=== PATIENT | female | born 1990 | race American Indian/Alaskan Native ===

== ENCOUNTER 2020-04-15 17:03 | Emergency (ER) | payer MEDICAID, OTHER ==
[2020-04-15] MEDS ORDERED: Sodium Chloride 0.9% 1,000 ML IV STA (17:29)
[2020-04-15] MEDS ORDERED: Ondansetron 4 MG/2 ML SDV IVPUSH ONE (17:29)
[2020-04-15] MEDS ORDERED: Sodium Chloride 0.9% 10 ML Syringe FLUSH PRN (17:29)
[2020-04-15] MEDS ORDERED: HYDROmorphone 1 MG/ML Syringe IVPUSH ONE (17:31)
[2020-04-15 17:32] VITALS: BP 128/91; PULSE 95
--- NOTE | 2020-04-15 18:45 | EDM.PDOC ---
<Lloyd Lopez - Last Filed: 04/15/20 20:51> ED HPI GENERAL MEDICAL PROBLEM - General Chief Complaint: Abdominal Pain Stated Complaint: PAIN RIGHT SIDE, FEVER Time Seen by Provider: 04/15/20 17:16 - Related Data Allergies Allergy/AdvReac Type Severity Reaction Status Date / Time No Known Allergies Allergy Verified 01/12/15 19:29 Home Meds: Home Meds Levofloxacin 1 tab PO QPM #6 tablet 04/15/20 [Rx] Past Medical History AIRPORT REPRESENTATIVE History: Reports: Spontaneous (x 1) : 2 Para: 1 Psychiatric History: Reports: Anxiety (untreated), Depression (untreated) Endocrine/Metabolic History: Reports: Diabetes, Gestational, Obesity/BMI 30+ Social & Family History - Tobacco Use Years of Tobacco use: 18 Packs/Tins Daily: 0.2 Packs/Tins Daily Comment: Down from 1 ppd - Alcohol Use Alcohol Use History: Yes Alcohol Use Frequency: Socially - Recreational Drug Use Recreational Drug Use: Yes Drug Use in Last 12 Months: Yes Recreational Drug Type: Reports: Methamphetamine (last injected late Mar 2020), Other (see below) (Last snorted, smoked opioids around 2009) - Living Situation & Occupation Living situation: Reports: Single, with Significant Other (Boyfriend), with Family (Son) 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 Becker. I have interviewed and examined the patient. The patient acknowledges that she has had this same right-sided abdominal pain that is also felt in her right flank for about a year, but it has been mild, therefore she has not sought medical attention for it. It became worse on or about , 04/11/2020, although the patient also acknowledges that she is not really sure on the timing, due to recently relapsing with IV methamphetamine. She estimates that she last injected methamphetamine about 1 week ago. She states that her LMP was yesterday, but that it was already finished by this morning. On examination, she has normal bowel sounds and a soft abdomen, but complains of some tenderness to the right side. She also complains of right CVA tenderness. The remainder of her examination is unremarkable. The patient's CBC is remarkable for a WBC count mildly elevated at 11.21, and an H/H slight depressed at 10.8/34.0, with the remainder of her CBC being unremarkable. Her CMP is remarkable for a potassium modestly depressed at 3.0, with the remai nder of her CMP being unremarkable. Her lipase is within normal limits at 72. Her qualitative serum hCG is negative. Her urinalysis is remarkable for 2+ occult blood with 5-10 RBCs, trace leukocyte esterase with 30-40 WBCs, nitrate negative with many bacteria, and 0-5 squamous epithelial cells. The results of the patient's CT of the abdomen and pelvis without contrast are still pending. Based on the above, I have ordered a urine culture, and will start the patient on oral nitrofurantoin. I have also ordered 40 mEq of oral KCl. 04/15/20 19:59 CT of the abdomen and pelvis without contrast is read by Dr. Nguyen as: 1. Slight haziness around the right kidney and ureter usually seen with a ureteral obstruction. No ureteral stone is seen on current exam and findings raise possibility of recent renal stone passage. Please correlate if patient's symptoms have improved. Findings otherwise could represent pyelonephritis. 2. No other acute finding is seen on CT study of the abdomen and pelvis performed without contrast. Based on the above, I will have to treat the patient for pyelonephritis, instead of a UTI. I will therefore start her on oral Levaquin, and prescribe a 7-day course. She may then safely be discharged home, however, I would like her to follow-up with her PCP in 3 days to check on her urine culture results. Departure - Departure Time of Disposition: 20:06 Disposition: Home, Self-Care 01 Condition: Good Clinical Impression: Pyelonephritis - Discharge Information *PRESCRIPTION DRUG MONITORING PROGRAM REVIEWED*: Not Applicable *COPY OF PRESCRIPTION DRUG MONITORING REPORT IN PATIENT NO: Not Applicable Prescriptions: Levofloxacin 1 tab PO QPM #6 tablet Instructions: Pyelonephritis, Adult Referrals: Adelina Mccauley NP [Nurse Practitioner] - Forms: ED Department Discharge Additional Instructions: You were seen in the emergency room for chronic right-sided abdominal and flank pain, worse over the past several days, with associated nausea but decreased appetite, increased urinary frequency, and possible fever. Work-up in the ER included blood work, a urinalysis, and a CT scan of your abdomen and pelvis without contrast. Your blood work was remarkable for a potassium mildly depressed at 3.0, and was otherwise unremarkable. Your urinalysis was consistent with a urinary tract infection. The CT scan of your abdomen and pelvis indicated that you have pyelonephritis = a urinary tract infection that involves the kidney. You were given oral potassium replacement in the ER, and started on the antibiotic levofloxacin (Levaquin). A prescription for levofloxacin has been sent to the [facility] in [place]. Take 1 tablet of levofloxacin every evening, starting tomorrow evening, 04/16/2020, as prescribed. Finish the entire prescription unless told otherwise by a doctor. Stay adequately hydrated. It does not really matter what type of fluid you drink. Follow-up with Adelina Mccauley NP, or one of the other providers in the clinic, this coming , 04/18/2020, to check on your urine culture results, to make sure that you are on the correct antibiotic. If any other problems, please do not hesitate to return to the ER. <Ian Becker - Last Filed: 04/17/20 22:20> ED HPI GENERAL MEDICAL PROBLEM - General Source of Information: Reports: Patient History Limitations: Reports: No Limitations - History of Present Illness INITIAL COMMENTS - FREE TEXT/NARRATIVE: The patient presents with right flank and right sided abdominal pain. This started on . She has nausea but no vomiting. She has no dysuria but she is urinating more often. She has no history of kidney stones. She has been having a fever and chills. She has nausea but no vomiting. She has no appetite. She has no cough, congestion, runny nose, chest pain or shortness of breath. Onset: Gradual Duration: Day(s): Location: Reports: Abdomen, Back Quality: Reports: Sharp Severity: Moderate Improves with: Reports: None Worsens with: Reports: None Associated Symptoms: Reports: Fever/Chills, Nausea/Vomiting. Denies: Chest Pain, Cough, Headaches, Shortness of Breath Treatments PROSPECT MANAGER: Reports: Other (see below) Other Treatments PROSPECT MANAGER: motrin Right Abdomen Pain Score (Numeric/FACES): 8 Past Medical History - Past Health History Medical/Surgical History: Denies Medical/Surgical History AIRPORT REPRESENTATIVE History: Reports: Other (See Below) Other AIRPORT REPRESENTATIVE History: gestational diabetes Psychiatric History: Reports: Anxiety, Depression - Infectious Disease History Infectious Disease History: Reports: None Social & Family History - Tobacco Use Smoking Status *Q: Current Every Day Smoker Years of Tobacco use: 14 Packs/Tins Daily: 0.1 - Caffeine Use Caffeine Use: Reports: Energy Drinks - Recreational Drug Use Recreational Drug Use: Yes Recreational Drug Type: Reports: Dilaudid, Methamphetamine Other Recreational Drug Type: oxycontin-doesn't remember last time taken ED ROS GENERAL - Review of Systems Review Of Systems: See Below Constitutional: Reports: Fever, Chills HEENT: Reports: No Symptoms Respiratory: Reports: No Symptoms Cardiovascular: Reports: No Symptoms Endocrine: Reports: No Symptoms GI/Abdominal: Reports: Abdominal Pain, Nausea. Denies: Diarrhea, Vomiting : Reports: No Symptoms Musculoskeletal: Reports: Back Pain (right flank) ED EXAM, GI/ABD - Physical Exam Exam: See Below Exam Limited By: No Limitations General Appearance: Alert, No Apparent Distress Ears: Normal External Exam Nose: Normal Inspection Head: Atraumatic, Normocephalic Neck: Normal Inspection Respiratory/Chest: No Respiratory Distress, Lungs Clear, Normal Breath Sounds Cardiovascular: Regular Rate, Rhythm, No Edema, No Murmur GI/Abdominal Exam: Soft, No Organomegaly, No Mass, Tender (Moderate tenderness to the right abdomen) Course - Vital Signs Last Recorded V/S: Last Vital Signs Temp 97.5 F 04/15/20 17:16 Pulse 95 04/15/20 17:31 Resp 20 04/15/20 17:16 BP 128/91 H 04/15/20 17:31 Pulse Ox 98 04/15/20 17:31 - Orders/Labs/Meds Labs: Laboratory Tests 04/15/20 04/15/20 04/15/20 Range/Units 17:55 17:55 17:55 WBC 11.21 H (3.98-10.04) K/mm3 RBC 4.20 (3.98-5.22) M/mm3 Hgb 10.8 L (11.2-15.7) gm/dl Hct 34.0 L (34.1-44.9) % MCV 81.0 (79.4-94.8) fl MCH 25.7 (25.6-32.2) pg MCHC 31.8 L (32.2-35.5) g/dl RDW Std Deviation 43.4 (36.4-46.3) fL Plt Count 266 D (182-369) K/mm3 MPV 10.7 (9.4-12.3) fl Neut % (Auto) 79.1 H (34.0-71.1) % Lymph % (Auto) 9.6 L (19.3-51.7) % [place] % (Auto) 10.4 (4.7-12.5) % Eos % (Auto) 0.6 L (0.7-5.8) Baso % (Auto) 0.1 (0.1-1.2) % Neut # (Auto) 8.86 H (1.56-6.13) K/mm3 Lymph # (Auto) 1.08 L (1.18-3.74) K/mm3 [place] # (Auto) 1.17 H (0.24-0.36) K/mm3 Eos # (Auto) 0.07 (0.04-0.36) K/mm3 Baso # (Auto) 0.01 (0.01-0.08) K/mm3 Manual Slide Review Abnormal smear Sodium 137 (136-145) mEq/L Potassium 3.0 L (3.5-5.1) mEq/L Chloride 104 (98-107) mEq/L Carbon Dioxide 28 (21-32) mEq/L Anion Gap 8.0 (5-15) BUN 12 (7-18) mg/dL Creatinine 1.0 (0.55-1.02) mg/dL Est Cr Clr Drug Dosing 66.81 mL/min Estimated GFR (MDRD) > 60 (>60) mL/min BUN/Creatinine Ratio 12.0 L (14-18) Glucose 99 (74-106) mg/dL Calcium 8.4 L (8.5-10.1) mg/dL Total Bilirubin 0.2 (0.2-1.0) mg/dL AST 19 (15-37) U/L ALT 27 (14-59) U/L Alkaline Phosphatase 103 (46-116) U/L Total Protein 7.3 (6.4-8.2) g/dl Albumin 2.5 L (3.4-5.0) g/dl Globulin 4.8 gm/dL Albumin/Globulin Ratio 0.5 L (1-2) Lipase 72 L (73-393) U/L HCG, Qual Negative (NEGATIVE) Urine Color (Yellow) Urine Appearance (Clear) Urine pH (5.0-8.0) Ur Specific [place] (1.005-1.030) Urine Protein (Negative) Urine Glucose (UA) (Negative) Urine Ketones (Negative) Urine Occult Blood (Negative) Urine Nitrite (Negative) Urine Bilirubin (Negative) Urine Urobilinogen (0.2-1.0) Ur Leukocyte Esterase (Negative) Urine RBC (0-5) /hpf Urine WBC (0-5) /hpf Ur Squamous Epith Cells (0-5) /hpf Urine Bacteria (FEW) /hpf Urine Mucus (FEW) /hpf 04/15/20 Range/Units 19:00 WBC (3.98-10.04) K/mm3 RBC (3.98-5.22) M/mm3 Hgb (11.2-15.7) gm/dl Hct (34.1-44.9) % MCV (79.4-94.8) fl MCH (25.6-32.2) pg MCHC (32.2-35.5) g/dl RDW Std Deviation (36.4-46.3) fL Plt Count (182-369) K/mm3 MPV (9.4-12.3) fl Neut % (Auto) (34.0-71.1) % Lymph % (Auto) (19.3-51.7) % [place] % (Auto) (4.7-12.5) % Eos % (Auto) (0.7-5.8) Baso % (Auto) (0.1-1.2) % Neut # (Auto) (1.56-6.13) K/mm3 Lymph # (Auto) (1.18-3.74) K/mm3 [place] # (Auto) (0.24-0.36) K/mm3 Eos # (Auto) (0.04-0.36) K/mm3 Baso # (Auto) (0.01-0.08) K/mm3 Manual Slide Review Sodium (136-145) mEq/L Potassium (3.5-5.1) mEq/L Chloride (98-107) mEq/L Carbon Dioxide (21-32) mEq/L Anion Gap (5-15) BUN (7-18) mg/dL Creatinine (0.55-1.02) mg/dL Est Cr Clr Drug Dosing mL/min Estimated GFR (MDRD) (>60) mL/min BUN/Creatinine Ratio (14-18) Glucose (74-106) mg/dL Calcium (8.5-10.1) mg/dL Total Bilirubin (0.2-1.0) mg/dL AST (15-37) U/L ALT (14-59) U/L Alkaline Phosphatase (46-116) U/L Total Protein (6.4-8.2) g/dl Albumin (3.4-5.0) g/dl Globulin gm/dL Albumin/Globulin Ratio (1-2) Lipase (73-393) U/L HCG, Qual (NEGATIVE) Urine Color Yellow (Yellow) Urine Appearance Clear (Clear) Urine pH 6.5 (5.0-8.0) Ur Specific [place] 1.025 (1.005-1.030) Urine Protein 2+ H (Negative) Urine Glucose (UA) Negative (Negative) Urine Ketones Negative (Negative) Urine Occult Blood 2+ H (Negative) Urine Nitrite Negative (Negative) Urine Bilirubin Negative (Negative) Urine Urobilinogen >=8.0 H (0.2-1.0) Ur Leukocyte Esterase Trace H (Negative) Urine RBC 5-10 H (0-5) /hpf Urine WBC 30-40 H (0-5) /hpf Ur Squamous Epith Cells 0-5 (0-5) /hpf Urine Bacteria Many H (FEW) /hpf Urine Mucus Few (FEW) /hpf Meds: Medications Discontinued Medications Generic Name Dose Route Start Last Admin Trade Name Darrin PRN Reason Stop Dose Admin Hydromorphone HCl 1 mg 04/15/20 17:31 04/15/20 17:58 Dilaudid IVPUSH 04/15/20 17:32 1 mg ONETIME ONE Administration Sodium Chloride 1,000 mls @ 1,000 mls/hr 04/15/20 17:29 04/15/20 18:00 Normal Saline IV 04/15/20 18:28 1,000 mls/hr .BOLUS STA Administration Levofloxacin 750 mg 04/15/20 20:03 04/15/20 20:08 Levaquin PO 04/15/20 20:04 750 mg ONETIME STA Administration Nitrofurantoin Macrocrystals 100 mg 04/15/20 19:45 04/15/20 20:07 Macrobid PO 04/15/20 19:46 Not Given ONETIME STA Ondansetron HCl 4 mg 04/15/20 17:29 04/15/20 17:55 Zofran IVPUSH 04/15/20 17:30 4 mg ONETIME ONE Administration Potassium Chloride 40 meq 04/15/20 19:47 04/15/20 20:08 Klor-Con M20 PO 04/15/20 19:48 40 meq ONETIME ONE Administration Sodium Chloride 10 ml 04/15/20 17:29 04/15/20 17:55 Saline Flush FLUSH 10 ml ASDIRECTED PRN Administration Keep Vein Open - Re-Assessments/Exams Free Text/Narrative Re-Assessment/Exam: 04/15/20 18:45 I ordered an IV NS 1L bolus, zofran 4mg IV, dilaudid 1mg IV, labs, UA and a CT of her abdomen and pelvis without contrast. 04/15/20 19:03 Her WBC was elevated at 11.21. Her HCG is negative. Her K was low at 3. Her CT is not back yet. It is change of shift. Dr Lopez to take over. Sepsis Event Note (ED) - Evaluation Sepsis Screening Result: No Definite Risk
--- NOTE | 2020-04-15 19:13 | CT ---
CT abdomen and pelvis Technique: Multiple axial sections were obtained from above the dome of the diaphragm inferiorly through the pubic symphysis. Intravenous and oral contrast not utilized. Study has been performed as a ureteral stone protocol. Findings: Slight haziness around the right kidney is seen. Haziness around the right ureter is also noted. These findings usually indicate an obstructing ureteral stone but no abnormal calcifications are seen along the course of the ureter. Findings raise possibility of recent stone passage or pyelonephritis. Kidneys show no abnormal calcifications. Visualized lung bases show nothing acute. Liver contains no focal parenchymal abnormality. Gallbladder contains no calcified gallstones. Spleen appears within normal limits. Adrenal glands show no nodule. Pancreas shows no discrete abnormality. Aorta shows no aneurysm. No retroperitoneal adenopathy or mesenteric abnormalities are seen. No pelvic mass or adenopathy is seen. No free fluid is identified. Appendix is visualized which is normal in size. Bone window settings were reviewed which shows no acute osseous finding. Impression: 1. Slight haziness around the right kidney and ureter usually seen with a ureteral obstruction. No ureteral stone is seen on current exam and findings raise the possibility of recent renal stone passage. Please correlate if patient's symptoms have improved. Findings otherwise could represent pyelonephritis. 2. No other acute finding is seen on CT study of the abdomen and pelvis performed without contrast. Diagnostic code #3 Study was dictated in MDT
[2020-04-15] MEDS ORDERED: Nitrofurantoin Monohydrate/Macrocrystalline 100 MG Cap PO STA (19:45)
[2020-04-15] MEDS ORDERED: Potassium Chloride 20 MEQ Tab.ER PO ONE (19:47)
[2020-04-15] MEDS ORDERED: Levofloxacin 750 MG Tab PO STA (20:03)
== END 2020-04-15 20:27 | disposition home or self-care (01) ==
LOC: JD.ED 17:03
DX: N12 Tubulo-interstitial nephritis, not specified as acute or chronic (principal); E87.6 Hypokalemia; F17.210 Nicotine dependence, cigarettes, uncomplicated; D72.829 Elevated white blood cell count, unspecified; E66.9 Obesity, unspecified; Z68.33 Body mass index [BMI] 33.0-33.9, adult
CPT/HCPCS: 36415; 74176; 80053; 81001; 83690; 84703; 85025; 87086; 87088; 87186; 96361; 96374; 96375; 99284; A9270; J1170; J2405; J7030; 99283